=== PATIENT | female | born 1975 | race Caucasian/White ===

== ENCOUNTER 2020-05-31 16:04 | Emergency (ER) | payer OTHER, BC ==
[~2020-05-31] VITALS: Ht 154.9 cm; Wt 108.9 kg
[2020-05-31 16:36] VITALS: BP_SYST 126
[2020-05-31] MEDS: ACETAMINOPHEN 325 MG TABLET PO ONE (17:03)
[2020-05-31] MEDS: LIDOCAINE 1% 10 MG/ML, 20 ML MDV INJ ONE (18:03)
[2020-05-31] MEDS: HYDROcodone/ACETAMIN 5-325 MG TAB (NORCO/ VICODIN) PO ONE (19:07)
== END 2020-05-31 19:05 | disposition home or self-care (01) ==
LOC: SED 16:04
DX: S93.104A Unspecified dislocation of right toe(s), initial encounter (principal); V49.49XA Driver injured in collision with other motor vehicles in traffic accident, initial encounter; Y93.89 Activity, other specified; Y92.413 State road as the place of occurrence of the external cause; Y99.8 Other external cause status
CPT/HCPCS: 99284